=== PATIENT | female | born 1990 | race Two or more races ===

== ENCOUNTER 2021-07-23 21:00 | Emergency (ER) | payer MEDICAID, OTHER ==
[~2021-07-23] VITALS: Ht 175.3 cm; Wt 181.4 kg
[2021-07-23 22:14] LABS: Basophils # (auto) 0.1 10 ^3/uL (0-0.2); Eosinophils # (auto) 0.4 10 ^3/uL (0-0.8); Eosinophils % (auto) 3.6 % (0.0-7.0); Hematocrit 38.5 % (36.0-46.0); Hemoglobin 13.3 g/dL (12.2-16.2); Lymphocytes # (auto) 3.3 10 ^3/uL (0.4-5.4); Lymphocytes % (auto) 31.4 % (10.0-50.0); Mean Corpuscular Hgb Conc. 34.6 g/dL (32.0-36.0); Monocytes # (auto) 0.6 10 ^3/uL (0-1.3); Neutrophils # (auto) 6.1 10 ^3/uL (1.6-8.6); Nucleated Red Blood Cells % 0.1 %; Red Blood Cells 4.58 10^6/uL (4.0-5.20); Red Cell Distribution Width 14.3 % (11.8-14.3); White Blood Cell 10.6 10^3/uL (4.4-10.8)
[2021-07-23 22:32] LABS: Albumin 3.4 g/dL (3.4-5.0)
[2021-07-23 22:38] LABS: Bilirubin, Total 0.4 mg/dL (0.2-1.0); Total Protein 6.9 g/dL (6.4-8.2)
[2021-07-23] MEDS ORDERED: FAMO-12 PO (23:14)
[2021-07-24 00:20] VITALS: BP 136/79
== END 2021-07-24 00:22 | disposition home or self-care (01) ==
LOC: ER 21:00
DX: R07.89 Other chest pain (principal); K21.9 Gastro-esophageal reflux disease without esophagitis
CPT/HCPCS: 36415; 71045; 80053; 84484; 85025; 93005

== ENCOUNTER 2022-09-21 00:48 | Emergency (ER) | payer MEDICAID ==
[~2022-09-21] VITALS: Ht 167.6 cm; Wt 159.0 kg
[~2022-09-21 00:48] MED LIST: FAMO-12 PO
[2022-09-21 02:44] LABS: Basophils # (auto) 0.1 10 ^3/uL (0-0.2); Basophils % (auto) 0.5 % (0.0-2.0); Eosinophils # (auto) 0.4 10 ^3/uL (0-0.8); Eosinophils % (auto) 2.8 % (0.0-7.0); Hematocrit 40.8 % (36.0-46.0); Hemoglobin 13.6 g/dL (12.2-16.2); Lymphocytes # (auto) 2.5 10 ^3/uL (0.4-5.4); Lymphocytes % (auto) 19.9 % (10.0-50.0); Mean Corpuscular Hemoglobin 28.6 pg (28.0-32.0); Mean Corpuscular Hgb Conc. 33.2 g/dL (32.0-36.0); Mean Corpuscular Volume 86.1 fL (80.0-100.0); Monocytes # (auto) 0.6 10 ^3/uL (0-1.3); Monocytes % (auto) 5.1 % (0.0-12.0); Neutrophils % (auto) 71.7 % (37.0-80.0); Nucleated Red Blood Cells % 0.2 %; Red Blood Cells 4.75 10^6/uL (4.0-5.20); Red Cell Distribution Width 14.6 % (11.8-14.3); White Blood Cell 12.6 10^3/uL (4.4-10.8)
[2022-09-21 02:59] LABS: Albumin 3.2 g/dL (3.4-5.0); Anion Gap 6 (5-15); Blood Urea Nitrogen 15 mg/dL (7-18); Calcium 8.9 mg/dL (8.5-10.1); Carbon Dioxide 22 mmol/L (21-32); Chloride 108 mmol/L (98-107); Glucose 136 mg/dL (74-106); Lipase 125 U/L (73-393); Potassium 3.6 mmol/L (3.5-5.1); Sodium 136 mmol/L (136-145)
[2022-09-21 03:01] LABS: Alanine Aminotransferase 28 U/L (13-56); Aspartate Aminotransferase 21 U/L (15-37); BUN/Creatinine Ratio 19.7 (10.0-20.0); GFR African American 115 mL/min; GFR Non-African American 95 mL/min
[2022-09-21 03:04] LABS: Alkaline Phosphatase 75 U/L (45-117); Bilirubin, Total 0.3 mg/dL (0.2-1.0); Total Protein 7.2 g/dL (6.4-8.2)
[2022-09-21] MEDS ORDERED: PERCOT PO (05:51)
[2022-09-21] MEDS ORDERED: NITR-87 PO (05:51)
[2022-09-21] MEDS ORDERED: ONDA-144 PO (05:51)
[2022-09-21] MEDS ORDERED: cefTRIAXone SOD 1,000 MG VL IM ONE (06:00)
[2022-09-21 06:10] VITALS: BP 138/85
[2022-09-21 06:35] LABS: Urine Bacteria MOD /hpf (None Seen); Urine Blood 3+ /uL (Negative); Urine Mucus MANY (None Seen); Urine Specific Gravity 1.031 (1.001-1.035); Urine WBC 41 /hpf (0 - 5)
== END 2022-09-21 06:21 | disposition home or self-care (01) ==
LOC: EDBD 00:48 → ER 00:48
DX: N39.0 Urinary tract infection, site not specified (principal)
CPT/HCPCS: 36415; 71045; 74176; 80053; 81001; 83690; 84484; 85025; 96372; 99285; J0696